=== PATIENT | female | born 1980 | race Caucasian/White ===

== ENCOUNTER → 2017-06-18 | Emergency (ER) | payer OTHER ==
[~2017-06-18] VITALS: Ht 167.6 cm; Wt 81.6 kg
[~2017-06-18] MED LIST: CATAFLAM50 MG PO; CODE1TAB37 PO; DOCUSATE SODIU100 MG PO; INTESTINEX1 CAP PO; IRON325 ( 651 PO; KETO10TA2 PO; METOCLOPRAMIDE10 MG PO; Mylicon 125MG PO; OMEPRAZOLE20 MG PO; ORPH100T PO; PANTOPRAZOLE SO40 MG PO; PROTONIX40 MG PO; SUCRALFATE1 G PO; TAMS0.4C PO
== END | disposition home or self-care (01) ==
LOC: ER 19:17
DX: R10.31 Right lower quadrant pain (principal); N20.0 Calculus of kidney

== ENCOUNTER 2017-08-06 19:16 | Emergency (ER) | payer OTHER ==
[~2017-08-06] VITALS: Ht 170.2 cm; Wt 89.8 kg
[2017-08-06] MEDS ORDERED: MUPIROCIN22 GM TOP (21:17)
[2017-08-06] MEDS ORDERED: KETO10TA2 PO (21:17)
[2017-08-06] MEDS ORDERED: SKELAXIN800 MG PO (21:17)
== END 2017-08-06 22:03 | disposition home or self-care (01) ==
LOC: ER 19:16
DX: S90.01XA Contusion of right ankle, initial encounter (principal); S30.0XXA Contusion of lower back and pelvis, initial encounter; W18.39XA Other fall on same level, initial encounter; Y93.89 Activity, other specified; Y92.098 Other place in other non-institutional residence as the place of occurrence of the external cause; Y99.8 Other external cause status

== ENCOUNTER 2018-01-29 18:32 | Emergency (ER) | payer OTHER ==
[~2018-01-29] VITALS: Ht 167.6 cm; Wt 81.6 kg
[~2018-01-29 18:32] MED LIST changes: +MUPIROCIN22 GM TOP; +SKELAXIN800 MG PO
[2018-01-29] MEDS ORDERED: CATAPRES0.2 MG (19:15)
[2018-01-30] MEDS ORDERED: KETO10TA2 PO (00:47)
[2018-01-30] MEDS ORDERED: TAMS0.4C PO ×2 (00:47→00:48)
== END 2018-01-30 02:05 ==
LOC: ER 18:32
DX: R10.9 Unspecified abdominal pain (principal)

== ENCOUNTER → 2018-11-19 | Emergency (ER) | payer OTHER ==
[~2018-11-19] VITALS: Ht 170.2 cm; Wt 81.6 kg
[~2018-11-19] MED LIST changes: +APRESOLINE 10MG10 MG; +CATAPRES0.2 MG
== END | disposition home or self-care (01) ==
LOC: ER 06:26
DX: N20.0 Calculus of kidney (principal); R10.32 Left lower quadrant pain

== ENCOUNTER 2019-04-02 05:23 | Emergency (ER) | payer OTHER ==
[~2019-04-02] VITALS: Ht 170.2 cm; Wt 81.6 kg
== END 2019-04-02 12:04 | disposition home or self-care (01) ==
LOC: ER 05:23
DX: R10.32 Left lower quadrant pain (principal); R10.12 Left upper quadrant pain

== ENCOUNTER 2019-04-30 19:36 | Emergency (ER) | payer OTHER ==
[~2019-04-30] VITALS: Ht 170.2 cm; Wt 72.6 kg
== END 2019-04-30 23:45 | disposition home or self-care (01) ==
LOC: ER 19:36
DX: N20.2 Calculus of kidney with calculus of ureter (principal); K76.0 Fatty (change of) liver, not elsewhere classified; R10.32 Left lower quadrant pain

== ENCOUNTER 2020-11-14 08:32 | Emergency (ER) | payer OTHER ==
[~2020-11-14] VITALS: Ht 170.2 cm; Wt 90.7 kg
[2020-11-14] MEDS ORDERED: PROTONIX40 MG PO (14:56)
[2020-11-14] MEDS ORDERED: LEVSIN/SL0.125 MG SL (14:56)
[2020-11-14] MEDS ORDERED: KETO10TA2 PO (14:56)
[2020-11-14] MEDS ORDERED: NORFLEX100MG PO (14:56)
== END 2020-11-14 15:37 | disposition home or self-care (01) ==
LOC: ER 08:32
DX: R10.9 Unspecified abdominal pain (principal); K76.0 Fatty (change of) liver, not elsewhere classified

== ENCOUNTER 2020-12-30 12:36 | Emergency (ER) | payer OTHER ==
[~2020-12-30] VITALS: Ht 157.5 cm; Wt 95.3 kg
[~2020-12-30 12:36] MED LIST changes: +LEVSIN/SL0.125 MG SL; +NORFLEX100MG PO
[2020-12-30] MEDS ORDERED: TUSSI PRES-B L480 ML PO (16:19)
[2020-12-30] MEDS ORDERED: PROAIR RESPICL90 MCG IH (16:19)
[2020-12-30] MEDS ORDERED: ZITHROMAX TRI-500 MG PO (16:19)
== END 2020-12-30 16:33 | disposition home or self-care (01) ==
LOC: ER 12:36
DX: B34.9 Viral infection, unspecified (principal); Z03.818 Encounter for observation for suspected exposure to other biological agents ruled out

== ENCOUNTER 2021-05-14 21:44 | Emergency (ER) | payer OTHER ==
[~2021-05-14] VITALS: Ht 170.2 cm; Wt 95.3 kg
[~2021-05-14 21:44] MED LIST changes: +PROAIR RESPICL90 MCG IH; +TUSSI PRES-B L480 ML PO; +ZITHROMAX TRI-500 MG PO
[2021-05-15] MEDS ORDERED: CEPHALEXIN500 MG PO (02:39)
[2021-05-15] MEDS ORDERED: KETO10TA2 PO (02:39)
== END 2021-05-15 02:47 | disposition home or self-care (01) ==
LOC: ER 21:44
DX: N39.0 Urinary tract infection, site not specified (principal); R10.84 Generalized abdominal pain

== ENCOUNTER 2025-02-18 08:51 | Emergency (ER) | payer OTHER ==
[~2025-02-18] VITALS: Ht 170.2 cm; Wt 102.1 kg
[~2025-02-18 08:51] MED LIST changes: +CEPHALEXIN500 MG PO
[2025-02-18] MEDS ORDERED: TRAMADOL HCL 50 MG TABLET PO ONE (11:00)
[2025-02-18 12:02] LABS: BASO % 0.5 % (0.1-1.2); EOS # 0.07 (0.04-0.54); EOS % 0.9 % (0.7-7.0); LYMPH # 2.51 (1.18-3.74); LYMPH % 32.3 % (19.3-53.1); MEAN PLATELET VOLUME 10.30 fl (9.4-12.4); MONO # 0.72 (0.24-0.82); MONO % 9.3 % (4.7-12.5); NEUT # 4.40 (1.56-6.13); NEUT % 56.5 % (34.0-71.1); RED CELL DISTRIBUTION WIDTH 13.4 % (11.6-14.4)
[2025-02-18 12:18] LABS: BUN CREA RATIO 29.0 (7.0-25.0); CREATININE SERUM 0.51 mg/dL (0.55-1.02); GFR 131.0; GLUCOSE FASTING 98.0 mg/dL (65-100); OSMOLALITY SERUM 284.0 MOSM/KG (275-295)
[2025-02-18 12:47] LABS: URINE APPEARANCE Cloudy; URINE BILIRRUBIN Negative (NEGATIVE); URINE BLOOD Negative; URINE COLOR Yellow; URINE GLUCOSE Negative (NEGATIVE); URINE KETONE Negative (NEGATIVE); URINE LEUKOCYTE Negative; URINE NITRATE Negative; URINE PROTEIN Negative (NEGATIVE); URINE UROBILINOGEN 0.2 E.U./dl
[2025-02-18 12:51] LABS: URINE BACTERIA 4200.6 uL (0.0-1933); URINE EPITHELIAL CELLS 177.7 uL (0.0-38.8); URINE RBC 5.6 uL (0.0-20.8); URINE WBC 38.9 uL (0.0-23.2)
[2025-02-18 13:15] LABS: URINE CAST 0.00 uL (0.0-1.40)
== END 2025-02-18 15:18 | disposition home or self-care (01) ==
LOC: ER 08:52
PROVIDERS: General Practice
DX: L03.115 Cellulitis of right lower limb (principal); M79.661 Pain in right lower leg; L03.90 Cellulitis, unspecified; Z91.018 Allergy to other foods